=== PATIENT | female | born 2005 | race African-American/Black ===

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

== ENCOUNTER 2025-07-03 17:26 | Emergency (ER) | payer OTHER ==
[2025-07-03] MEDS ORDERED: diphenhydrAMINE 25 MG CAP ONE (18:13)
[2025-07-03] MEDS ORDERED: Dexamethasone 4 MG TAB ONE (18:14)
== END 2025-07-03 19:20 | disposition home or self-care (01) ==
LOC: CSHERS 17:26
DX: L50.0 Allergic urticaria (principal)
CPT/HCPCS: 99283; J8540